=== PATIENT | male | born 1995 | race Caucasian/White ===

== ENCOUNTER 2019-03-19 00:30 | Emergency (ER) | payer SELFPAY ==
[2019-03-19] MEDS ORDERED: ONDANSETRON 4 MG TAB.RAPDIS PO ONE (04:01)
--- NOTE | 2019-03-19 04:44 | RADIOLOGY REPORT (SQ) ---
EXAM DESCRIPTION: CT HEAD WITHOUT IV CONTRAST COMPLETED DATE/TME: 03/19/2019 00:00 CLINICAL HISTORY: Trauma/pain COMPARISON: None available TECHNIQUE: Axial CT of the head obtained from the skull apex to the skull base without contrast. FINDINGS: No acute intracranial hemorrhage identified. No mass, mass effect, shift of the midline, abnormal extra-axial fluid collection or CT evidence of acute ischemic change identified. The ventricular system is unremarkable. No acute abnormalities of the supratentorial white matter, basal ganglia, cerebellum, or brainstem. Mucosal thickening of the right sphenoid sinus. Mastoid air cells are well aerated. No skull fracture identified. Visualized orbits and globes are unremarkable. DLP: 1070.38 mGy-cm IMPRESSION: 1. No acute intracranial abnormality identified. This exam was performed according to our departmental dose-optimization program, which includes automated exposure control, adjustment of the mA and/or kV according to patient size and/or use of iterative reconstruction technique.
--- NOTE | 2019-03-19 05:13 | ER Document Report ---
ED General - General Chief Complaint: Leg Pain Stated Complaint: LEG PAIN Time Seen by Provider: 03/19/19 03:42 Notes: Patient is a 24-year-old male who presents with complaint of falling and hitting his head side. Patient says he drank a large amount of alcohol and tripped and fell and hit his head and according to the door. When patient woke up he was also having some pain in his left calf muscle. 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 He has not had any recent surgeries in his leg. No abnormal swelling to his leg. Pain is a pinpoint area over the middle of the left calf. Patient says today he has had few episodes of vomiting. He said some intermittent headache. has felt dizzy at times. He has had an episode where he started shaking. He was awake during this episode. He was not postictal or confused before after or during the episode. TRAVEL OUTSIDE OF THE [place] IN LAST 30 DAYS: No - Related Data Allergies/Adverse Reactions: No Known Allergies Allergy (Unverified 03/19/19 03:40) Past Medical History - Social History Smoking Status: Never Smoker Frequency of alcohol use: None Drug Abuse: None Family History: Reviewed & Not Pertinent Patient has suicidal ideation: No Patient has homicidal ideation: No Renal/ Medical History: Denies: Hx Peritoneal Dialysis Past Surgical History: Reports: Hx Orthopedic Surgery - ACL repair Review of Systems - Review of Systems Notes: My Normal Review Basic REVIEW OF SYSTEMS: CONSTITUTIONAL : Denies fever, chills, or sweats. Denies recent illness. RESPIRATORY: Denies cough, cold, or chest congestion. Denies shortness of breath, difficulty breathing, or wheezing. GASTROINTESTINAL: Denies abdominal pain. Recurrent vomiting GENITOURINARY: Denies difficulty urinating, painful urination, burning, frequency, or blood in urine. MUSCULOSKELETAL: Pain over the middle of the left calf muscle. SKIN: Denies rash or skin lesions. NEUROLOGICAL: Denies altered mental status or loss of consciousness. Has a headache. Denies weakness or paralysis or loss of use of either side. Denies problems with gait or speech. Denies sensory or motor loss. ALL OTHER SYSTEMS REVIEWED AND NEGATIVE. Physical Exam - Vital signs Vitals: Temp Pulse Resp BP Pulse Ox 98.7 F 92 18 178/98 H 99 03/19/19 01:00 03/19/19 01:00 03/19/19 01:00 03/19/19 01:00 03/19/19 01:00 - Notes Notes: General Appearance: Well nourished, alert, cooperative, no acute distress, no obvious discomfort. Well-appearing Vitals: reviewed, See vital signs table. Head: Small hematoma over right forehead. Eyes: PERRL, EOMI, Conjuctiva clear Mouth: No decreasd moisture Lungs: No wheezing, No rales, No rhonci, No accessory muscle use, good air exchange bilaterally. Heart: Normal rate, Regular rythm, No murmur, no rub Extremities: strength 5/5 in all extremities, good pulses in all extremities, she has a pinpoint area of tenderness in the middle of the left calf. Remainder of the calf muscle is nontender. No pain behind the knee. No swelling to the leg. No edema. Skin: warm, dry, appropriate color, no rash Neuro: speech clear, oriented x 3, normal affect, responds appropriately to questions. Cranial nerves II through XII are intact. Distal sensation intact. Patient moves all extremities without difficulty. Normal coronation of movements. Course - Re-evaluation Re-evalutation: 03/19/19 05:18 I suspect the most likely patient's calf pain is musculoskeletal nature. He does not remember an injury but he was also very drunk the night before. I think DVT is less likely however the patient has a history of DVTs and therefore I informed him that it would be appropriate to get up venous Doppler of his leg. Patient agrees with an outpatient venous Doppler he does not want to wait the morning time. I written prescription for this. Patient did have appears to be a concussion. I did do a CT scan of his head because he had recurrent vomiting as well as headache as well as hematoma over his forehead. CT scan was negative for any intracranial bleeding or skull fracture. Informed patient to try to avoid drinking large amounts of alcohol to stay on the heat. I encouraged him to return to ER if he has fevers, intractable vomiting, severe headache, increasing leg pain or any leg swelling, chest pain or shortness of breath. Patient agrees with plan will be discharged home. Dictation of this chart was performed using voice recognition software; therefore, there may be some unintended grammatical errors. - Vital Signs Vital signs: Temp Pulse Resp BP Pulse Ox 98.7 F 92 18 178/98 H 99 03/19/19 01:00 03/19/19 01:00 03/19/19 01:00 03/19/19 01:00 03/19/19 01:00 Discharge - Discharge Clinical Impression: Pain of left calf Concussion Qualifiers: Encounter type: initial encounter Loss of consciousness presence/duration: without LOC Qualified Code(s): S06.0X0A - Concussion without loss of consciousness, initial encounter Condition: Good Disposition: HOME, SELF-CARE Additional Instructions: CT scan of your head did not show any concerning findings. I suspect you have a concussion. You may still have some intermittent nausea and vomiting because of the concussion. I have prescribed you a medication called Zofran which is a nausea medicine that will help prevent vomiting. Please try to avoid heavy drinking of alcohol the next several days. Please make sure you get lots of rest and please try to stay out of the heat as much as possible. Please make sure you drink lots of non-caffeinated, non-alcoholic liquids to stay well- hydrated. In regards to your calf pain, you likely have a calf strain however you do have a history of previous DVT and therefore it is important to have an ultrasound to rule out if you are having another blood clot. I have written a prescription for a outpatient ultrasound of your leg. Please call the number on the prescription and arrange a time to come in to have the ultrasound performed. Please return to the ER if you have chest pain, difficulty breathing, severe headache, intractable vomiting, or if you feel you are worsening in any way. Prescriptions: Ondansetron [Zofran Odt 4 mg Tablet] 1 tab PO Q4H PRN #15 tab.rapdis PRN Reason: For Nausea/Vomiting Forms: Follow-Up Outpatient Testing
[2019-03-19 05:34] VITALS: BP 139/83
== END 2019-03-19 05:34 | disposition home or self-care (01) ==
LOC: ER 00:30
DX: M79.18 Myalgia, other site (principal); S06.0X0A Concussion without loss of consciousness, initial encounter; S00.83XA Contusion of other part of head, initial encounter; W19.XXXA Unspecified fall, initial encounter; Z86.718 Personal history of other venous thrombosis and embolism; R51 Headache
CPT/HCPCS: 99283; 70450; S0119